=== PATIENT | male | born 1990 | race Caucasian/White ===

== ENCOUNTER 2025-03-17 16:52 | Emergency (ER) | payer MEDICAID, SELFPAY ==
--- NOTE | 2025-03-17 | ECG_ITS ---
Test Reason : CP Blood Pressure : */* mmHG Vent. Rate : 88 BPM Atrial Rate : 88 BPM P-R Int : 162 ms QRS Dur : 74 ms QT Int : 354 ms P-R-T Axes : 16 10 26 degrees QTcB Int : 428 ms Sinus rhythm with Premature atrial complexes Otherwise normal ECG No previous ECGs available Referred By: Generic ED Physician Electronically Signed By: JAIR WHELAN MD
--- NOTE | ~2025-03-17 | CT_ITS ---
CLINICAL HISTORY: chest pain CT Angiography Chest with contrast. 3-D postprocessing Comparison: None provided Findings: No suspicious thyroid nodules. No lymphadenopathy. Mediastinum and Heart: No cardiomegaly. Pulmonary arteries: No pulmonary embolism to the level of the lobar arteries. The main pulmonary artery is normal in size. Lungs: No consolidation, pleural effusion, or pneumothorax. No suspicious lung nodule. Bones and soft tissues: Multilevel degenerative changes of the spine. No acute fracture. Impression: No pulmonary embolism to the level of the lobar pulmonary arteries. This document has been electronically signed by: Jaylin Talamantes MD on 03/17/2025 21:49:41
--- NOTE | ~2025-03-17 | XR_ITS ---
CLINICAL HISTORY: chest pain 1 year 2 view chest x-ray. Comparison: None Findings: No consolidation or effusion. Cardiac and mediastinal contours are unremarkable. Bones unremarkable. Impression: 1. No acute pulmonary disease. This document has been electronically signed by: Magdy Zavala MD on 03/17/2025 17:53:07
--- NOTE | ~2025-03-17 | CT_ITS ---
CLINICAL HISTORY: sepsis, abd pain CT abdomen and pelvis with contrast Comparison: None provided Findings: Lung bases: Clear. Liver: No focal lesions. No biliary ductal dilatation. Patent portal vein. Gallbladder: Noninflamed gallbladder. Spleen: Normal Pancreas: Mild diffuse fatty atrophy of the pancreas. No solid mass or main duct dilation. Adrenal glands: No nodules. Kidneys: No hydronephrosis. No stones. No solid mass. Pelvic organs: Normal. Peritoneum and Gastrointestinal: Large stool burden in the rectum. No bowel obstruction, pneumoperitoneum, or ascites. Lymph nodes: No lymphadenopathy. Vessels: Atherosclerosis. Bones and soft tissues: Unremarkable. IMPRESSION: No acute CT findings of the abdomen or pelvis. Large stool burden in the rectum. No surrounding wall inflammation to suggest stercoral colitis. This document has been electronically signed by: Jaylin Talamantes MD on 03/17/2025 21:50:06
[2025-03-17 17:02] VITALS: BP 147/109; PULSE 93; RESP 20; TEMP 36.1; O2SAT 98; BMI 47.3
--- NOTE | 2025-03-17 17:06 | ED_ITS ---
[facility] - General Adult General Chief complaint: Chest Pain Stated complaint: cp sob Time Seen by Provider: 03/17/25 19:22 Source: patient Mode of arrival: ambulatory Limitations: no limitations History of Present Illness ED Provider: Dr. Hernández [facility] narrative: This is a 34-year-old male history of asthma presented hospital today for persistent cough that has been going on for months now. Patient stated that he has been having some chest pain as well that has been going on for a year. He is complaining of some shortness of breath with this. Denies any abdominal pain. Denies any dysuria. Denies any wound. Patient stated that he is currently homeless at this time. Living at a [facility]. Related Data Previous Rx's ?Medication ?Instructions ?Recorded amlodipine 5 mg tablet 5 mg PO DAILY 30 days #30 ta bs 03/17/25 Allergies Allergy/AdvReac Type Severity Reaction Status Date / Time amoxicillin Allergy Hives Verified 03/17/25 17:04 carbamazepine (From Tegretol) Allergy Hives Verified 03/17/25 17:04 phenytoin (From Dilantin) Allergy Hives Verified 03/17/25 17:04 Review of Systems 2 Review of Systems: Pertinent review of systems as mentioned in HPI. All other system otherwise negative. [facility] Past Medical History [facility] Narrative: Medical history as mentioned in HPI Social History Social History Smoked in Last 30 Days: Yes Use of substances other than those prescribed or required for medical reasons: Yes Substance Use Type: Marijuana Advance Directives: No Advance Directives Information Provided: Yes Do you have a plan to hurt others: No Plan Physical Exam ED Exam Exam: General: Pleasant, no distress, interacting appropriately Head: Normacephalic, atraumatic ENT: oral mucosa moist, neck supple, no tracheal deviation Cardiovascular: regular rate, regular rhythm, no murmurs, rubbing, gallops Respiratory: CTAB, no wheeze, rales, rhonchi Gastrointestinal: Soft, non distended, non tender, non guarding Extremities: No limb pain or swelling, no calf tenderness Neurological: Awake and alert, no facial droop noted Skin: Warm and dry Psychiatric: Appropriate mood and thoughts Vital Signs: Vital Signs - 24 hr 03/17/25 17:02 03/17/25 19:18 03/17/25 21:48 Temperature 97 F 98.2 F Pulse Rate 93 88 Respiratory Rate 20 22 H Blood Pressure 147/109 H 141/89 H 145/96 H Pulse Oximetry 98 97 Oxygen Delivery Method Room Air Room Air 03/17/25 22:00 Temperature 98 F Pulse Rate 75 Respiratory Rate 18 Blood Pressure 146/83 H Pulse Oximetry 95 Oxygen Delivery Method Room Air BMI result Body Mass Index 47.3 Course Course Course Narrative: This is a rapid medical exam performed by Brigette Dawn NP: Additional HPI, ROS, PE not included below will be deferred to primary provider. Patient is a 34-year-old male presenting to the emergency department with complaint of left anterior chest pain for the past year. States pain is constant. Feels it has worsened over the past few days. Associated dyspnea. Presenting requesting 2nd opinion. Plan: EKG, labs, CXR Medications Administered Discontinued Medications Generic Name Dose Route Start Last Admin Trade Name Freq PRN Reason Stop Dose Admin Azithromycin 500 mg 03/17/25 23:09 03/17/25 23:21 Azithromycin 500 Mg Tablet PO 03/17/25 23:10 500 mg ONCE ONE Administration Levofloxacin 750 mg in 150 mls @ 100 mls/hr 03/17/25 19:37 03/17/25 21:37 Levaquin IV 03/17/25 21:06 Infused ONCE ONE Infusion Sodium Chloride 1,000 mls @ 999 mls/hr 03/17/25 20:00 03/17/25 21:48 Ns IV 03/17/25 21:00 Infused .Q1H1M DAYAMI Infusion Iohexol 85 ml 03/17/25 20:22 03/17/25 20:22 Iohexol 350 Mg/Ml 100 Ml Infus..Btl IV 03/17/25 20:23 85 ml ONCE ONE Administration Medical Decision Making Medical Decision Making [facility] Narrative: This is a 34-year-old male presented hospital today for evaluation of chest pain and persistent coughing. Patient's lab work did show signs of leukocytosis however I did obtain a CT imaging of chest abdomen and pelvis. Did not show any signs of pneumonia. Patient is did not have any signs of PE. No sign of intra-abdominal infectious cause. He does have white blood cell count of 20. Lactic acid isn't elevated. He does not have tachycardia or fever. This is isolated leukocytosis. He has denies any dysuria that we will indicate a possible urinary cause of his symptoms. No history of IV drug use. No wounds At this time patient appears to be medically stable on my evaluation. Blood culture were drawn and sent off. Patient did receive some IV Levaquin for empiric therapy. I have low suspicion for infectious cause for the patient's leukocytosis. We will plan to discharge patient. Encouraged him to follow up and outpatient lab for repeat CBC to assess his white blood cell count. I do not think patient has sepsis Referral to primary care doctor will be given to the patient as well. He does have an appointment in May. Differential Diagnosis Differential Diagnoses: The differential diagnosis associated with the presentation includes Leukocytosis, sepsis, pneumonia, bronchitis Lab Data MDM Lab Attestation statement: I reviewed the patient's lab results. 03/17/25 17:30 03/17/25 17:30 Labs: Lab Results 03/17/25 03/17/25 Range/Units 17:30 19:46 WBC 20.3 H (4.8-10.8) X10*3/uL RBC 5.52 (4.60-5.80) X10*6/uL Hgb 14.6 (14.0-18.0) g/dl Hct 45.0 (42.0-52.0) % MCV 81.5 (80.0-98.0) fL MCH 26.4 L (27.0-33.0) pg MCHC 32.4 (31.0-36.0) g/dl RDW 13.6 (11.0-16.0) % Plt Count 425 H (160-400) X10*3/uL MPV 9.7 (9.4-12.4) fL Immature Gran % (Auto) 0.3 (0.0-0.4) % Neut % (Auto) 74.3 H (45-73) % Lymph % (Auto) 20.4 (20-40) % [place] % (Auto) 4.1 (2-11) % Eos % (Auto) 0.6 (0-4) % Baso % (Auto) 0.3 (0-2) % Lymph # (Auto) 4.1 (1.2-4.9) X10*3/uL [place] # (Auto) 0.8 (0.1-1.2) X10*3/uL Eos # (Auto) 0.1 (0.0-0.4) X10*3/uL Baso # (Auto) 0.1 (0.0-0.2) X10*3/uL Abs Immat Gran (auto) 0.07 H (0.00-0.03) X10*3/uL Absolute Neuts (auto) 15.1 H (2.0-8.3) x10*3/uL Absolute Nucleated RBC 0.000 (0.0-0.012) X10*3/uL Nucleated RBC % (auto) 0.0 (0.0-0.2) /100WBC PT 13.3 (11.2-13.5) SEC INR 1.1 (0.9-1.1) Sodium 141 (135-145) mmol/L Potassium 4.3 (3.3-5.1) mmol/L Chloride 106 (96-108) mmol/L Carbon Dioxide 24 (22-29) mmol/L Anion Gap 15 (12-20) BUN 18 H (9-16) mg/dL Creatinine 0.94 (0.5-1.4) mg/dL Estim Creat Clear Calc 137.1 Estimated GFR > 60 Random Glucose 83 (60-115) mg/dL Lactic Acid 1.1 (0.5-2.0) mmol/L Calcium 9.8 (8.4-10.2) mg/dL Total Bilirubin 0.3 (0.0-1.0) mg/dL AST 25 (5-37) U/L ALT 25 (0-40) U/L Alkaline Phosphatase 147 H (39-117) U/L Troponin I High Sens < 2.7 (<3.5-35.0) ng/L Total Protein 7.9 (6.5-8.0) g/dL Albumin 4.7 (3.5-5.0) g/dL Independent Interpretation I performed an independent interpretation of an: CT Scan Radiology Impression Discussion of test interpretation with radiology: I have reviewed the radiologist's reading. Discharge Plan Discharge Clinical Impression: Leukocytosis Qualifiers: Leukocytosis type: unspecified Qualified Code(s): D72.829 - Elevated white blood cell count, unspecified Patient Disposition: Home, Self-Care Instructions: Leukocytosis (ED) Additional Instructions: Ct imaging did not show any signs of infection. You do have an elevated white blood cell count. Make sure to follow up with your primary care doctor or walk in clinic for redraw. I re-send a referral of for primary care doctor for you. Prescriptions: New amlodipine 5 mg tablet 5 mg PO DAILY 30 Days Qty: 30 0RF Referrals: [facility] Primary Care[facility] [Provider Group, Internal Medicine] Print Language: Pakistani
[2025-03-17 17:35] LABS: MANUAL DIFF FLAG NO
[2025-03-17 17:45] LABS: Hematocrit 45.0 % (42.0-52.0); Hemoglobin 14.6 g/dl (14.0-18.0); Imm Gran Abs Auto 0.07 X10*3/uL (0.00-0.03); Imm Gran Pct Auto 0.3 % (0.0-0.4); Lymphocytes Absolute Auto 4.1 X10*3/uL (1.2-4.9); Mean Corpuscular HGB Conc 32.4 g/dl (31.0-36.0); Mean Corpuscular Hemoglobin 26.4 pg (27.0-33.0); Mean Corpuscular Volume 81.5 fL (80.0-98.0); NRBC Abs Auto 0.000 X10*3/uL (0.0-0.012); NRBC Pct Auto 0.0 /100WBC (0.0-0.2); Platelet Count 425 X10*3/uL (160-400); Red Blood Count 5.52 X10*6/uL (4.60-5.80); White Blood Count 20.3 X10*3/uL (4.8-10.8)
[2025-03-17 17:49] LABS: Alanine Aminotransferase 25 U/L (0-40); Albumin Level 4.7 g/dL (3.5-5.0); Alkaline Phosphatase 147 U/L (39-117); Anion Gap 15 (12-20); Aspartate Amino Transferase 25 U/L (5-37); Blood Urea Nitrogen 18 mg/dL (9-16); Calcium 9.8 mg/dL (8.4-10.2); Carbon Dioxide 24 mmol/L (22-29); Chloride 106 mmol/L (96-108); Creatinine Clr Calc Pharmacy 137.1; Estimated Glomerular Filt Rate > 60; Potassium 4.3 mmol/L (3.3-5.1); Sodium 141 mmol/L (135-145); Total Protein 7.9 g/dL (6.5-8.0)
[2025-03-17 17:54] LABS: INTERNATIONAL NORM RATIO 1.1 (0.9-1.1); Prothrombin Time 13.3 SEC (11.2-13.5)
[2025-03-17 17:58] LABS: Troponin-I High Sensitivity < 2.7 ng/L (<3.5-35.0)
[2025-03-17 19:18] VITALS: BP 141/89; PULSE 88; RESP 22; TEMP 36.8; O2SAT 97
--- NOTE | 2025-03-17 19:24 | PC.NURSE ---
pt reports intermittent chest pain for 1 year, today it was worse than before, pain radiating down arm, pt denies other pin, no headache at this time. denies anyone sick at home, reports mild SOB hx f asthma, denies any cardiac hx, no DM. Pt v/s WNL. lab results show white count of 20. provider Dr. Hernández advised.
--- NOTE | 2025-03-17 19:57 | PC.NURSE ---
pt medicated per MAR.
[2025-03-17] MEDS: iohexoL 350 MG/ML 100 ML INFUS..BTL 85 ML IV (20:22)
[2025-03-17 21:48] VITALS: BP 145/96
[2025-03-17 22:00] VITALS: BP 146/83; PULSE 75; RESP 18; TEMP 36.6; O2SAT 95
--- OUTSIDE RECORDS SUMMARY | 2025-03-18 01:07 | XMS_ITS | Clinical Summary ---
Author Organization [facility] Address [address] [place] [address] Phone Care Team Providers Care Clinical Systems Educator Name Role Phone Physician, No Pcp Primary Care Provider Unavaila ble Allergies Active Allergy Reactions Criticality Noted Date Comments Amoxicillin Hives Medium 03/02/2025 Phenytoin Sodium Extended Hives,Chills Medium 03/02/20 25 Medications pseudoephedrine (SUDAFED) 120 mg 12 hr tablet Take 1 tablet (120 mg total) by mouth every 12 (twelve) hours for 5 days. Do not crush, chew, or split. 10 each 03/02/2025 Active Encounters Date Type Department Care Team Description 03/02/2025 8:02 PM EDT - 03/02/2025 9:[address] [facility] Emergency [address] [place] [address] Acute non-recurrent frontal sinusitis (Primary Dx); Upper respiratory tract infection, unspecified type Discharge Disposition: Home or Self Care from Last 3 Months Social History Tobacco Use Types Packs/Day Years Used Date Smoking Tobacco: Never Tobacco Cessation:Counseling Given: Not Answered Sex and Gender Information Value Date Recorded Sex Assigned at Not on file Legal Sex Male 7:39 PM EDT Gender Identity Not on file Sexual Orientation Not on file Obstetrics History Last Filed Vital Signs Vital Sign Reading Time Taken Comments Blood Pressure 134/89 03/02/2025 7:56 PM EDT Pulse 89 03/02/2025 7:56 PM EDT Temperature 36.7 C (98.1 F) 03/02/2025 7:56 PM EDT Respiratory Rate 16 03/02/2025 7:56 PM EDT Oxygen Saturation 100% 03/02/2025 7:56 PM EDT Inhaled Oxygen Concentration - - Weight - - Height - - Body Mass Index - - Plan of Treatment Health Maintenance Due Date Last Done Comments DTaP,Tdap,and Td Vaccines (1 - Tdap) 2008 Hepatitis A Vaccines (1 of 2 - Risk 2-dose series) 2008 Hepatitis B Vaccines (1 of 3 - 19+ 3-dose series) 2008 HPV Vaccines (1 - 3-dose SCD M series) 2016 Depression Screening 05/04/2024 COVID-19 Vaccine (1 - 2024-2 6 season) 2025 Influenza Vaccine (#1) 2025 Cholesterol Screening (Lipid Panel) 03/02/2025 HIV Screening 03/02/2025 Hepatitis C Screening 03/02/2025 Social Influencers of Health Screening 03/02/2025 Hypertension/CHF/CAD Annual BMP Blood Test 03/10/2025 RSV Immunization Adult Patie nts (1 - 1-dose 75+ series) 2064 HIB Vaccines Aged Out No longer eligi ble based on patient's age to complete this topic IPV Vaccines Aged Out No longer eligi ble based on patient's age to complete this topic MMR Vaccines Aged Out No longer eligi ble based on patient's age to complete this topic Meningococcal ACWY Vaccine Aged Out N o longer eligible based on patient's age to complete this topic Meningococcal B Vaccine Aged Out No l onger eligible based on patient's age to complete this topic Pneumococcal Vaccine: Pediat rics (0 to 5 Years) and At-Risk Patients (6 to 49 Years) Aged Out No longer eligible b ased on patient's age to complete this topic RSV Immunization Patients Un юлия 20 months Aged Out No longer eligible b ased on patient's age to complete this topic Varicella Vaccines Aged Out No longer eligible based on patient's age to complete this topic Procedures Procedure Name Priority Date/Time Associated Diagnosis Comments ECG ANNOTATED 03/03/2025 ECG 12-LEAD STAT 03/02/2025 8:03 PM EDT [id number], RSV, FLU A AND B QUALITATIVE RT-PCR, INTERNAL LAB STAT 03/02/2025 7:55 PM EDT from Last 3 Months Results * ECG-Annotated (03/03/2025) Provider Onbase ECG ORDERABLES Final Result * ECG 12 lead (03/02/2025 8:03 PM EDT) Pathologist [facility] Ventricular Rate ECG 87 BPM GEMUSE Atrial Rate 87 BPM GEMUSE P-R Interval 166 ms GEMUSE QRS Duration 80 ms GEMUSE Q-T Interval 370 ms GEMUSE QTc 445 ms GEMUSE P Wave [place] 14 degrees GEMUSE R [place] 18 degrees GEMUSE T [place] 39 degrees GEMUSE ECG Interpretation Normal sinus rhythm Normal ECG No previous ECGs available Confirmed by Dolly MCDERMOTT YUFENG ([id number]) on 03/02/2025 9:32:36 PM GEMUSE 03/02/2025 8:03 PM EDT 03/02/2025 9:32 PM EDT Juwan Mariano MD ECG ORDERABLES Final Resul t GEMUSE * [id number], RSV, Influenza A and B qualitative RT-PCR (03/02/2025 7:55 PM EDT) [facility] Influenza A PCR Not Detected Not Detected LAB MICROBIOLOGY METHOD 03/02/2025 8:57 PM EDT [facility] Influenza B PCR Not Detected Not Detected LAB MICROBIOLOGY METHOD 03/02/2025 8:57 PM EDT [facility] RSV PCR Not Detected Not Detected LAB MICROBIOLOGY METHOD 03/02/2025 8:57 PM EDT [facility] SARS COV-2 Not Detected Not Detected LAB MICROBIOLOGY METHOD 03/02/2025 8:57 PM EDT [facility] Swab Both anterior nares / Unknown Non-blood Collection / Unknown 03/02/2025 7:55 PM EDT 03/02/2025 8:06 PM EDT Result [facility] Juwan Mariano MD LAB MICROBIOLOGY - GENERAL ORDERABLES Final Result [facility] [address] [place] [address], from Last 3 Months Insurance MEDICAID - [place] Care Teams Clinical Systems Educator Relationship Specialty Start Date End Date Physician, No Pcp PCP - General 03/02/25
[2025-03-18 06:29] VITALS: BP 166/82; PULSE 92; RESP 18; TEMP 36.6; O2SAT 96
== END 2025-03-18 07:02 | disposition home or self-care (01) ==
PROVIDERS: Registered Nurse Emergency; Emergency Provider Student in an Organized Health Care Education/Training Program
DX: D72.829 Elevated white blood cell count, unspecified (principal); R10.9 Unspecified abdominal pain; R05.9 Cough, unspecified
CPT/HCPCS: 36415; 71046; 71275; 74177; 80053; 83605; 84484; 85025; 85610; 87040; 93005; 96365; 96366; 99284; 99285; J1956; Q9967

== ENCOUNTER → 2025-03-17 16:56 | Outpatient (BNV) | payer MEDICAID, SELFPAY | PROVIDERS: Emergency Provider Student in an Organized Health Care Education/Training Program; Visit Provider Internal Medicine Cardiovascular Disease | DX: I49.1 Atrial premature depolarization (principal) | CPT/HCPCS: 93010 ==

== ENCOUNTER → 2025-03-17 17:07 | Outpatient (BNV) | payer MEDICAID, SELFPAY | PROVIDERS: Visit Provider Radiology Diagnostic Radiology | DX: A41.9 Sepsis, unspecified organism (principal); R10.9 Unspecified abdominal pain; R07.9 Chest pain, unspecified | CPT/HCPCS: 71046; 71275; 74177 ==

== ENCOUNTER 2025-03-29 16:50 | Emergency (ER) | payer MEDICAID, SELFPAY ==
--- OUTSIDE RECORDS SUMMARY | 2025-03-28 22:00 | XMS_ITS | Continuity of Care Document ---
Author Organization [facility] ter Address [address] [place] [id number]- Care Team Providers Care Color Repairer Name Role Phone Not on Staff, PCP Primary Care Physician Unavail able Encounter [facility] Date(s): 03/28/25 - 03/28/[address] [address]- Discharge Disposition: A-D/C Home Attending Physician: Jillian Zamora MD Admitting Physician: Jillian Zamora MD Referring Physician: Not on Staff, Referring MD Encounter Type: Disch ES Allergies, Adverse Reactions, Alerts Substance Criticality Severity Reaction Reaction Severity Status penicillins Hives Active TEGretol Hives Active Dilantin Hives Active PHENobarbital Hives Active Problem List Condition Confirmation Course Effective Dates Status Health St atus Informant COVID-19 1 Confirmed 03/28/25 Active Severe obesity Confirmed Active 1Problem added by Discern Expert Vital Signs Most recent to oldest [Reference Range]: 1 2 3 Height 165 cm (03/28/25 7:35 PM) 165 cm (03/28/25 6:15 PM) Weight 129 kg (03/28/25 7:35 PM) 129 kg (03/28/25 6:15 PM) Oxygen Saturation [94-100 %] 97 % (03/28/25 8:00 PM) 100 % (03/28/25 6:15 PM) 98 % (03/28/25 6:15 PM) Pulse Rate [55-90 bpm] 92 bpm *H* (03/28/25 8:00 PM) 94 bpm *H* (03/28/25 6:15 PM) 104 bpm *H* (03/28/25 6:15 PM) Body Mass Index [18.5-24.99 kg/m2] 47.38 kg/m2 *H* (03/28/25 6:15 PM) Blood Pressure [90-138/55-84 mm Hg] 149/94mm Hg *H* (03/28/25 8:00 PM) 170/96mm Hg *H* (03/28/25 6:15 PM) Respiratory Rate [16-30 br/min] 18 br/min (03/28/25 8:00 PM) 18 br/min (03/28/25 6:15 PM) Temperature [96.8-100.4 DegF] 98.8 DegF (03/28/25 6:15 PM) Mode of Delivery (Oxygen) Room air (03/28/25 8:00 PM) Room air (03/28/25 6:15 PM) Room air (03/28/25 6:15 PM) Blood pressure sites Arm, right (03/28/25 8:00 PM) Arm, left (03/28/25 6:15 PM) Temperature Route Oral (03/28/25 6:15 PM) Dry Weight 129 kg (03/28/25 7:35 PM) Weight Obtained Via Standing scale (03/28/25 7:35 PM) Patient/family stated (03/28/25 6:15 PM) Social History Social History Type Response Smoking Status 5-9 cigarettes (betw een 1/4 to 1/2 pack)/day in last 30 days entered on: 04/07/19 Sex Sex Representation Male (finding) Status N/A Note * Dorota BEGUM, Loida Koch: PERFORM Event Display: Patient Education Leaflets Authored Date: [id number] [facility] [place] - If you need a Doctor or Clinic ?? 34 If You Need a Doctor or Clinic ?? Call [facility] PCP Assignment Line to help you find a doctor:?? [phone] ?? Clinics in [place], [place] For a full list of clinics:? [email or web address] ?? [facility]? [address] [facility]? [phone] [facility] Internal medicine Clinic?[address]?[phone] [facility]?[address][phone] [facility]?[address][phone] [facility]?[address] [phone] [facility]?[address][phone] [facility]?[address][phone] [facility]?[address] [phone] [facility]? [address][phone] 4 [facility]?[address][phone] [facility]?[address][phone] [facility]?[address][phone] [facility]?[address][phone] [facility]? [address][phone] [facility]?[address][phone] ? * Loida Pascal: PERFORM Event Display: Patient Education Leaflets Authored Date: [id number] NSAID Analgesic Schedule ?? 604 NSAID???s Analgesic Schedule ?? Pain is the primary source of illness following your procedure and can include dehydration, difficulty and painful swallowing, and weight loss. These symptoms can lead to increased post-operative visits and hospital readmission. The best way to control pain is to take pain medications regularly. Your doctor has recommended both Ibuprofen and Acetaminophen (generic/store brands are okay, too). These can be picked up over the counter at your pharmacy of choice. Follow the instructions on the bottle to determine the proper dosage to give. The simplest way to take these medications it to rotate the two at 3-hour intervals. Here is a sample diagram. The time you take your medications may vary from this example. Do not give Ibuprofen more than every 6 hours or Acetaminophen every 4 hours. Do not give Acetaminophen if your doctor has given you a prescription that contains Acetaminophen. ? * Loida Pascal: PERFORM Event Display: Patient Education Leaflets Authored Date: [id number] COVID-19 Information for Families ?? 87 COVID-19 Information for Families Information from: www.cdc.gov/COVID19 ? What is coronavirus disease 2019 (COVID-19)? Coronavirus disease 2019 (COVID-19) is a respiratory illness that can spread from person to person.The virus that causes COVID-19 is a NEW coronavirus that [facility] ?? How does COVID-19 spread? The virus that causes COVID-19 probably emerged from an animal source, but is now spreading from person to person. The virus spreads mainly between people who are in close contact with one another (within 6 feet) through respiratory droplets produced when an infected person coughs or sneezes. It may be possible that a person can get COVID-19 by touching a surface or object that has the virus on it and then touching their own mouth, nose or eyes. ?? What are the symptoms? (*Most common in children) ??? Fever* ??? Runny nose ??? Aching muscles ??? Cough* ??? Sore throat ??? Congestion ??? A few can have vomiting & diarrhea ?? When should a symptomatic person seek medical care? When symptoms are getting worse ??? Breathing is more difficult ?? Call the doctor immediately if: ??? Breathing is labored ??? Tightness in chest ??? Bluish lips or face ??? New confusion or cannotarouse BEFORE seeking care, call your doctor and tell them you are Being evaluated for COVID-19. ?? What can I do to protect myself and my family from getting COVID-19? Avoid close contact with people who are sick ??? Avoid touching your eyes, nose and mouth with unwashed hands ??? Wash your hands often with soap and water for at least 20 seconds. Especially: - Before you eat, prepare food or feed your children - After diapering an infant or using the bathroom - Use an alcohol-based hand plumber maintenance if soap and water are not available ?? For cleaning use: Soap & water For disinfection use: ??? Most common EPA-registered household disinfectants should be effective ??? Alcohol solutions with at least 70% alcohol ??? Diluted bleach: - 1 tsp bleach - 1 cup of water ?? What if someone I live with has symptoms? Symptomatic people should: ??? Stay home: - In an area apart from family and pets - With a separate bathroom if possible ??? Restrict activities outside your home except for medical care ??? Cover coughs or sneezes with a tissue or your elbow (discard tissue immediately) ??? Clean and disinfect frequently touched objects and surfaces every day ??? Avoid sharing personal household items: food, drink, dishes, utensils, towels, and bedding ? Is it okay for a mother with symptoms to breastfeed her infant? Breast milk is the best source of nutrition for most infants. However, much is unknown about COVID-19. Whether to start or continue should be determined by the mother in coordination with her healthcare provider. A mother with confirmed or symptoms of COVID-19 should take all possibleprecautions to avoid spreading the virus to her , including washing her hands before touchingthe infant and wearing a face mask, if possible, while feeding at the breast. If expressing breast milk with a manual or electric breast pump, the mother should wash her hands before touching any pump or bottle parts and follow recommendations for proper pump cleaning after each use. If possible, consider having someone who is well feed the expressed breast milk to the . ? Patient Care team information Care Team Personnel Name: Not on Staff, PCP Position: S Physician (General Medicine) Member Role: PCP Care Team Related Persons Name: JOSE LUIS ROMANO Insurance Providers Guarantor name: ROBERTA Health Plan Information #: 1 Payer: [employer] Payer Identifier: ROBERTA Member Number: [id number] Group Number: [id number] Subscriber Identifier: [id number] Relationship to Subscriber: self Coverage Type: MEDICAID Coverage Verification Date: ROBERTA Telecom: ROBERTA Address:
--- NOTE | ~2025-03-29 | XR_ITS ---
CLINICAL HISTORY: sob cp 2 view chest x-ray Comparison: CR - XR CHEST 2V - 03/17/2025 05:25 PM EST Findings: The lungs are clear. Heart size is normal. No acute fracture. IMPRESSION: 1. No acute findings. This document has been electronically signed by: Gaetano King MD on 03/29/2025 17:26:01
[2025-03-29 16:56] VITALS: BP 159/92; PULSE 106; RESP 16; TEMP 37.1; O2SAT 98; BMI 45.7
--- NOTE | 2025-03-29 16:56 | ED.HA ---
HPI - Headache General Chief Complaint: Upper Respiratory Symptoms Stated Complaint: Headache Time Seen by Provider: 03/29/25 16:57 Source: patient, RN notes reviewed and old records reviewed Mode of arrival: ambulatory History of Present Illness ED Provider: Angelica Mendoza PA-C HPI Narrative: 34-year-old male with a past medical history of asthma presenting to the ED complaining of diffuse myalgias, dry cough, SOB, intermittent chest discomfort with cough x3-4 days. Admits was seen at [facility] last night and diagnosed with COVID-19 however only prescribed Tylenol/Motrin which he was unhappy with. Denies fever, chills, ear pain, sore throat. + sick contacts Related Data Previous Rx's ?Medication ?Instructions ?Recorded amlodipine 5 mg tablet 5 mg PO DAILY 30 days #30 tabs 03/17/25 acetaminophen 500 mg tablet 500 mg PO Q6H PRN fever or pain 03/29/25 (Tylenol Extra Strength) #14 tabs ibuprofen 400 mg tablet 400 mg PO Q6H PRN fever or pain 03/29/25 #14 tabs Allergies Allergy/AdvReac Type Severity Reaction Status Date / Time amoxicillin Allergy Hives Verified 03/29/25 17:00 carbamazepine (From Tegretol) Allergy Hives Verified 03/29/25 17:00 phenytoin (From Dilantin) Allergy Hives Verified 03/29/25 17:00 Review of Systems Review of Systems: Yes all other systems are reviewed and are negative Constitutional: Constitutional: Reports as per [facility] Past Medical History Attestation statement: The following information was validated with the patient. Source: old records reviewed Social History Social History Substance Use Type: Marijuana Advance Directives: No Advance Directives Information Provided: No Do you have a plan to hurt others: No Plan Physical Exam Vital Signs: Vital Signs: Last Vital Signs Temp 98.3 F 03/29/25 19:32 Pulse 86 03/29/25 19:32 Resp 20 03/29/25 19:32 BP 145/83 H 03/29/25 19:32 Pulse Ox 100 03/29/25 19:32 O2 Del Method Room Air 03/29/25 19:32 BMI result Body Mass Index 45.7 Const: General: cooperative, healthy appearing and no acute distress Orientation/consciousness: patient oriented x3 Limitations: no limitations HEENT: Head: Yes normal to inspection and Yes atraumatic Ears: hearing grossly normal bilaterally General nose exam: Normal external nose present Face and sinus: Yes normal facial exam Eyes: General: appearance normal, both eyes and all related structures EOM: EOMs intact bilaterally Neck: Neck: Yes normal visual inspection and Yes no meningeal signs Resp: Effort & Inspection: normal respiratory effort and no respiratory distress Auscultation: clear to auscultation bilaterally, no crackles, no rales and no wheezes Cardio: Rate: regular rate Heart sounds: S1 normal heart sound present and S2 normal heart sound present GI: Inspection: Yes normal to inspection Palpation (GI): Soft to palpation, nontender, no guarding and not rigid Skin: Rashes: no rashes Wounds: no wounds Neuro: General: patient oriented x3, tone normal and no meningeal signs Cranial nerves: Yes CN's II-XII intact bilaterally Gait exam (Neuro): Normal gait present Extrem: General: Yes normal to inspection Course Course Course Narrative: -1839--mild leukocytosis of 13.4. Troponin negative. Labs otherwise reassuring. -CXR unremarkable -COVID-19 positive -VS normalized Results discussed with patient including worrisome signs and symptoms and strict return precautions, and when to return to the emergency department. They verbalized understanding and feel safe for discharge at this time. Medical Decision Making Medical Decision Making [facility] Narrative: 34-year-old male with a past medical history of asthma presenting to the ED complaining of diffuse myalgias, dry cough, SOB, intermittent chest discomfort with cough x3-4 days. On exam mildly tachycardic, NAD, nontoxic appearing, talking in complete sentences, no respiratory distress, lungs CTA. Concern for COVID-19. Rule out pneumonia. Lower suspicion for acute ACS, PE/DVT, dissection Plan: EKG, labs, CXR Please refer to course for remaining clinical decision making, interpretation of labs/imaging results, and discussions with consultants and/or family members. Differential Diagnosis Differential Diagnoses: The differential diagnosis associated with the presentation includes As above Admission/Observation Consideration of admission/observation: Escalation of care including admission/observation considered Lab Data [facility] Lab Attestation statement: I reviewed the patient's lab results. 03/29/25 17:45 03/29/25 17:45 Labs: Lab Results 03/29/25 Range/Units 17:45 WBC 13.4 H (4.8-10.8) X10*3/uL RBC 5.23 (4.60-5.80) X10*6/uL Hgb 14.0 (14.0-18.0) g/dl Hct 42.0 (42.0-52.0) % MCV 80.3 (80.0-98.0) fL MCH 26.8 L (27.0-33.0) pg MCHC 33.3 (31.0-36.0) g/dl RDW 13.7 (11.0-16.0) % Plt Count 305 D (160-400) X10*3/uL MPV 9.8 (9.4-12.4) fL Immature Gran % (Auto) 0.3 (0.0-0.4) % Neut % (Auto) 70.5 (45-73) % Lymph % (Auto) 18.9 L (20-40) % Lagrange % (Auto) 6.7 (2-11) % Eos % (Auto) 3.3 (0-4) % Baso % (Auto) 0.3 (0-2) % Lymph # (Auto) 2.5 (1.2-4.9) X10*3/uL [place] # (Auto) 0.9 (0.1-1.2) X10*3/uL Eos # (Auto) 0.4 (0.0-0.4) X10*3/uL Baso # (Auto) 0.0 (0.0-0.2) X10*3/uL Abs Immat Gran (auto) 0.04 H (0.00-0.03) X10*3/uL Absolute Neuts (auto) 9.4 H (2.0-8.3) x10*3/uL Absolute Nucleated RBC 0.000 (0.0-0.012) X10*3/uL Nucleated RBC % (auto) 0.0 (0.0-0.2) /100WBC Sodium 139 (135-145) mmol/L Potassium 3.9 (3.3-5.1) mmol/L Chloride 108 (96-108) mmol/L Carbon Dioxide 22 (22-29) mmol/L Anion Gap 13 (12-20) BUN 15 (9-16) mg/dL Creatinine 0.89 (0.5-1.4) mg/dL Estim Creat Clear Calc 142.1 Estimated GFR > 60 Random Glucose 118 H (60-115) mg/dL Calcium 9.3 (8.4-10.2) mg/dL Total Bilirubin 0.3 (0.0-1.0) mg/dL Direct Bilirubin 0.1 (0.0-0.5) mg/dL AST 28 (5-37) U/L ALT 21 (0-40) U/L Alkaline Phosphatase 132 H (39-117) U/L Troponin I High Sens < 2.7 (<3.5-35.0) ng/L Total Protein 7.4 (6.5-8.0) g/dL Albumin 4.5 (3.5-5.0) g/dL Influenza Type A (PCR) NEGATIVE (Negative) Influenza Type B (PCR) NEGATIVE (Negative) RSV RNA Qual (PCR) NEGATIVE (Negative) SARS-CoV-2 RNA (RT-PCR) POSITIVE A (Negative) Independent Interpretation I performed an independent interpretation of an: EKG (My interpretation: EKG normal sinus rhythm rate of 92. ME interval 162. QTC 440. No STEMI. Nonspecific T-wave abnormality now evident in lateral leads) and Plain X-Ray Radiology Impression Discussion of test interpretation with radiology: I have reviewed the radiologist's reading. External Record Review External record reviewed: Inpatient record, Office record, Outpatient record, Prior outpatient labs, Prior outpatient radiology, Primary care record and Outside ED record Tests considered The following testing was considered but not selected: As above Chronic Conditions Patient?s care impacted by: Other Social Determinants Patient?s care significantly limited by Social Determinants of Health including: Low income and Problems related to primary support group Discharge Plan Discharge Clinical Impression: COVID-19 Patient Disposition: Home, Self-Care Instructions: COVID-19 (Coronavirus Disease 2019) (ED) Additional Instructions: YOU HAVE COVID-19 At this time you will be okay for discharge. Please self isolate for 5 days. Do not expose yourself to others. You may not go to work or school. Please continue to follow cold instructions and wash your hands frequently. You may take Tylenol / Motrin as directed on the bottle for pain or fever. If you have constant or persistent shortness of breath, fever unresolved with medications, chest pain, or your unable to eat or drink please return to the ED CDC Guidelines for home isolation: - Stay away from others - WEAR A MASK if you are sick AND STAY HOME - Cover your mouth and nose with a tissue when you cough or sneeze. Dispose of tissues in a lined trash can and wash your hands immediately with soap and water for at least 20 seconds. If soap and water are not available, clean hands with alcohol-based hand physical education specialist that contains at least 60% alcohol. - Clean your hands often with soap and water for at least 20 seconds - Avoid touching your eyes, nose and mouth with unwashed hands - Do not share dishes, drinking glasses, cups, eating utensils, towels, or bedding with other people in your home. After using these items, wash them thoroughly with soap and water or put in the provider relations coordinator. - Clean high-touch surfaces in your isolation area ( sick room and bathroom) every day; let a caregiver clean and disinfect high-touch surfaces in other areas of the home. Clean the area or item with soap and water or another detergent if it is dirty. Then, use a household disinfectant. - Limit contact with pets and animals: If you must care for a pet, wash your hands before and after interacting with them) Prescriptions: New acetaminophen [Tylenol Extra Strength] 500 mg tablet 500 mg PO Q6H PRN (Reason: fever or pain) Qty: 14 0RF ibuprofen 400 mg tablet 400 mg PO Q6H PRN (Reason: fever or pain) Qty: 14 0RF No Action amlodipine 5 mg tablet 5 mg PO DAILY 30 Days Qty: 30 0RF Referrals: Physician,Unknown J [Primary Care Provider, Medical] - 1 week Interventions: ED Discharge Assessment Last Done: 03/29/25 19:32 Discharge Date/Time: 03/29/25 19:33 Print Language: Cook Islander
--- NOTE | 2025-03-29 17:00 | ECG_ITS ---
Test Reason : RESPIRATORY Blood Pressure : */* mmHG Vent. Rate : 92 BPM Atrial Rate : 92 BPM P-R Int : 162 ms QRS Dur : 80 ms QT Int : 356 ms P-R-T Axes : -24 -18 143 degrees QTcB Int : 440 ms Normal sinus rhythm Nonspecific T wave abnormality Abnormal ECG When compared with ECG of 17-Mar-2025 16:56, Premature atrial complexes are no longer Present Nonspecific T wave abnormality now evident in Lateral leads Referred By: Angelica Mendoza Electronically Signed By: Modesto Floyd
[2025-03-29 17:50] LABS: MANUAL DIFF FLAG NO
[2025-03-29 17:52] LABS: Hematocrit 42.0 % (42.0-52.0); Hemoglobin 14.0 g/dl (14.0-18.0); Imm Gran Abs Auto 0.04 X10*3/uL (0.00-0.03); Imm Gran Pct Auto 0.3 % (0.0-0.4); Lymphocytes Absolute Auto 2.5 X10*3/uL (1.2-4.9); Mean Corpuscular HGB Conc 33.3 g/dl (31.0-36.0); Mean Corpuscular Hemoglobin 26.8 pg (27.0-33.0); Mean Corpuscular Volume 80.3 fL (80.0-98.0); NRBC Abs Auto 0.000 X10*3/uL (0.0-0.012); NRBC Pct Auto 0.0 /100WBC (0.0-0.2); Platelet Count 305 X10*3/uL (160-400); Red Blood Count 5.23 X10*6/uL (4.60-5.80); White Blood Count 13.4 X10*3/uL (4.8-10.8)
--- OUTSIDE RECORDS SUMMARY | 2025-03-29 18:01 | XMS_ITS | Clinical Summary ---
Author Organization [facility] Address [address] [place] [address] Phone Care Team Providers Care Sports Director Name Role Phone Physician, No Pcp Primary [...] EDT - 03/02/2025 9:07 PM EDT Emergency [facility] Emergency [address] [place] [address] Acute non-recurrent frontal sinusitis (Primary [...] ECG 12-LEAD STAT 03/02/2025 8:03 PM EDT [id number], RSV, FLU A AND B QUALITATIVE RT-PCR, INTERNAL LAB STAT 03/02/2025 7:55 PM EDT from Last 3 Months Results * ECG-Annotated (03/03/2025) Provider Onbase ECG ORDERABLES Final Result * ECG 12 lead (03/02/2025 8:03 PM EDT) Pathologist [facility] Ventricular Rate ECG 87 BPM GEMUSE Atrial Rate 87 BPM GEMUSE P-R Interval 166 ms GEMUSE QRS Duration 80 ms GEMUSE Q-T Interval 370 ms GEMUSE QTc 445 ms GEMUSE P Wave [place] 14 degrees GEMUSE R [place] 18 degrees GEMUSE T [place] 39 degrees GEMUSE ECG Interpretation Normal sinus rhythm Normal ECG No previous ECGs available Confirmed by Dolly MCDERMOTT YUFENG ([id number]) on 03/02/2025 9:32:36 PM GEMUSE 03/02/2025 8:03 PM EDT 03/02/2025 9:32 PM EDT Juwan Mariano MD ECG ORDERABLES Final Resul t GEMUSE * [id number], RSV, Influenza A and B qualitative RT-PCR (03/02/2025 7:55 PM EDT) [facility] Influenza A PCR Not Detected Not Detected LAB MICROBIOLOGY METHOD 03/02/2025 8:57 PM EDT [facility] Influenza B PCR Not Detected Not Detected LAB MICROBIOLOGY METHOD 03/02/2025 8:57 PM EDT [facility] RSV PCR Not Detected Not Detected LAB MICROBIOLOGY METHOD 03/02/2025 8:57 PM EDT [facility] SARS COV-2 Not Detected Not Detected LAB MICROBIOLOGY METHOD 03/02/2025 8:57 PM EDT [facility] Swab Both anterior nares / Unknown Non-blood Collection / Unknown 03/02/2025 7:55 PM EDT 03/02/2025 8:06 PM EDT Result [facility] Juwan Mariano MD LAB MICROBIOLOGY - GENERAL ORDERABLES Final Result [facility] [address] [place] [address], from Last 3 Months Insurance MEDICAID - [place] Care Teams Sports Director Relationship Specialty Start Date End Date Physician, No Pcp PCP - General 03/02/25
[2025-03-29 18:07] LABS: Alanine Aminotransferase 21 U/L (0-40); Albumin Level 4.5 g/dL (3.5-5.0); Alkaline Phosphatase 132 U/L (39-117); Anion Gap 13 (12-20); Aspartate Amino Transferase 28 U/L (5-37); Blood Urea Nitrogen 15 mg/dL (9-16); Calcium 9.3 mg/dL (8.4-10.2); Carbon Dioxide 22 mmol/L (22-29); Chloride 108 mmol/L (96-108); Creatinine Clr Calc Pharmacy 142.1; Estimated Glomerular Filt Rate > 60; Potassium 3.9 mmol/L (3.3-5.1); Sodium 139 mmol/L (135-145); Total Protein 7.4 g/dL (6.5-8.0)
[2025-03-29 18:16] LABS: Troponin-I High Sensitivity < 2.7 ng/L (<3.5-35.0)
[2025-03-29 18:34] LABS: Resp Syncy Virus RNA Qual PCR NEGATIVE (Negative); SARS COV2 PCR INHOUSE POSITIVE (Negative)
[2025-03-29 19:06] VITALS: BP 145/83; PULSE 86; RESP 20; TEMP 36.8; O2SAT 100
[2025-03-29 19:32] VITALS: BP 145/83; PULSE 86; RESP 20; TEMP 36.8; O2SAT 100
== END 2025-03-29 19:33 | disposition home or self-care (01) ==
PROVIDERS: Physician Assistant; Emergency Provider Student in an Organized Health Care Education/Training Program
DX: U07.1 COVID-19 (principal); R51.9 Headache, unspecified; R06.02 Shortness of breath; R07.9 Chest pain, unspecified; R94.31 Abnormal electrocardiogram [ECG] [EKG]
CPT/HCPCS: 36415; 71046; 80048; 80076; 84484; 85025; 87637; 93005; 99283; 99284

== ENCOUNTER → 2025-03-29 17:00 | Outpatient (BNV) | payer MEDICAID, SELFPAY | PROVIDERS: Emergency Provider Student in an Organized Health Care Education/Training Program; Visit Provider Radiology Diagnostic Radiology | DX: R07.9 Chest pain, unspecified (principal); R06.02 Shortness of breath | CPT/HCPCS: 71046 ==

== ENCOUNTER → 2025-03-29 17:00 | Outpatient (BNV) | payer MEDICAID, SELFPAY | PROVIDERS: Emergency Provider Student in an Organized Health Care Education/Training Program; Visit Provider Internal Medicine Cardiovascular Disease | DX: R94.31 Abnormal electrocardiogram [ECG] [EKG] (principal); R07.9 Chest pain, unspecified | CPT/HCPCS: 93010 ==